=== PATIENT | female | born 1945 | race Caucasian/White ===

== ENCOUNTER 2023-11-08 11:43 | Observation (INO) | payer MEDICARE ==
[~2023-11-08] VITALS: Ht 167.6 cm; Wt 58.9 kg
[2023-11-08] VITALS (39 sets, daily range): BP systolic 100–222; BP diastolic 66–132
[~2023-11-08 11:43] MED LIST: FLUOXETINE20 MG PO; LORTAB 1010 MG PO; TRAZODONE50 MG PO
--- NOTE | 2023-11-08 12:00 | NUR ---
PT IN ROOM C/O SOB, " I FEEL LIKE I AM GOING TO ." PT REPORTED FEELING SHAKY, AND FELL TWICE AT HOME.
[2023-11-08] MEDS ORDERED: SODIUM CHLORIDE 0.9% 1,000 ML IV ONE (12:35)
[2023-11-08 12:41] LABS: BASO% 0.6 % (0-3); HEMOGLOBIN 12.7 g/dl (12.0-16.0); IMMATURE GRANULOCYTES 0.3 % (0.0-5.0); LYMPH% 15.6 % (15-41); MEAN CELL VOLUME 87.8 fL CALC (80.0-100.0); MEAN CORPUSCULAR HGB 29.3 pG CALC (26.0-32.0); MEAN CORPUSCULAR HGB CONC 33.4 g/dL CAL (32.0-36.0); MONO% 6.8 % (2-13); NEUT# 4.76 thou/uL (2.00-7.15); NEUT% 76.7 % (42-76); RED BLOOD COUNT 4.33 mill/uL (4.20-5.60); RED CELL DISTRI WIDTH 14.1 % (11.5-15.5)
[2023-11-08] MEDS ORDERED: LABETALOL HCL 20 MG/ 4 ML CARTRG IV ONE (12:50)
[2023-11-08] MEDS ORDERED: DiphenhydrAMINE HCL 50 MG/ML SDV IV ONE (12:50)
--- NOTE | 2023-11-08 13:00 | NUR ---
PT IN ROOM C/O HAVING SOME DIFFICULTY BREATHING, HR ELEVATED. BP ELEVATED. PROVIDER IS AWARE AND IS ADDING MEDS FOR PT.
[2023-11-08 13:06] LABS: ALBUMIN 4.4 g/dL (3.2-5.0); ALKALINE PHOSPHATASE 103 u/l (38-126); ANION GAP 12 (6-22 (CALC)); BILIRUBIN, TOTAL 0.8 mg/dL (0.02-1.3); BUN 14 mg/dL (8-23); BUN/CREATININE RATIO 16 (12-20 (CALC)); CARBON DIOXIDE 24 mmol/l (22-30); CHLORIDE 101 mmol/l (95-108); CREATININE 0.9 mg/dL (0.5-1.0); ETHYL ALCOHOL 0 mg/dl (0-30); GFR FOR AFR.AMER. > 60 ML/MIN (>=60 (CALC)); GFR OTHER RACES > 60 ML/MIN (>=60 (CALC)); LIPASE 81 u/l (23-300); POTASSIUM 4.1 mmol/l (3.5-5.1); SGOT/AST 47 u/l (9-36); SODIUM 133 mmol/l (137-146); TOTAL PROTEIN 7.9 g/dL (6.3-8.2)
[2023-11-08] MEDS ORDERED: diazePAM 10 MG/2 ML VIAL IV ONE (13:10)
--- NOTE | 2023-11-08 14:00 | NUR ---
PT IN ROOM FEELING BETTER, PT IS RESTING WITH EYES CLOSED. IN ROOM WITH PT. NO OTHER CONCERNS TO REPORT AT THIS TIME.
[2023-11-08] MEDS ORDERED: SODIUM CHLORIDE 0.9% 1,000 ML IV PRN (14:50)
[2023-11-08] MEDS ORDERED: ACETAMINOPHEN 325 MG/TAB PO PRN (14:50)
[2023-11-08] MEDS ORDERED: MAGNESIUM HYDROXIDE 30 ML UDC PO PRN (14:50)
--- NOTE | 2023-11-08 15:00 | NUR ---
PT IN ROOM RESTING WATCHING TV. FAMILY MEMBERS IN ROOM WITH PT. NO CONCERNS AT THIS TIME. PT REPORTS FEELING BETTER FROM THIS MORNING
[2023-11-08] MEDS ORDERED: LEVOTHYROXIN50 MC1 PO (15:17)
[2023-11-08] MEDS ORDERED: OLANZAPINE5 MG PO (15:18)
[2023-11-08] MEDS ORDERED: OMEPRAZOLE DR40 MG PO (15:19)
[2023-11-08] MEDS ORDERED: PAROXETINE40 M1 PO (15:20)
[2023-11-08] MEDS ORDERED: MEMANTINE HYDROC5 MG PO (15:21)
[2023-11-08] MEDS ORDERED: CVS IBUPROFEN200 M3 PO (15:59)
[2023-11-08] MEDS ORDERED: TRAVOPROST0.0041 (16:02)
[2023-11-08] MEDS ORDERED: BRIMONIDINE TAR (16:02)
--- NOTE | 2023-11-08 18:00 | NUR ---
PATIENT TRANSFERRED TO ED-I ROOM 14. PATIENT SETTLED AND PROVIDED DINNER TRAY. ALERT AND ORIENTED X 3. DENIES ANY ISSUES OR CONCERNS AT THIS TIME.
--- NOTE | 2023-11-08 18:00 | NUR ---
PT MOVED FROM ROOM 11 TO ROOM 14 SHE IS ADMITTED. PT WILL BE HOLDING IN THE ER UNTIL SHIFT CHANGE. LEFT AHS STATED HE WILL BE BACK IN THE MORNING FOR VISIT. PT HAS NO CONCERNS OR COMPLAINTS AT THIS TIME. ELBA EDGE.
--- NOTE | 2023-11-08 20:23 | NUR ---
REPORT GIVEN TO CHAD ON MS. PT IS GOING TO ROOM 262 ON TELE # 14
--- NOTE | 2023-11-08 20:33 | NUR ---
PT TO FLOOR VIA WHEELCHAIR. NO CONCERNS TO REPORT AT THIS TIME.
--- NOTE | 2023-11-08 20:33 | NUR ---
PATIENT ADMITTED TO [facility] TO ROOM 262. AMBULATED SELF TO ROOM BED. ASSESSMENT COMPLETE. NO DISTRESS. NO COMPLAINTS OF PAIN. DENIES NEEDING ANYTHING AT THIS TIME. ORIENTED PATIENT TO ROOM, CALL NEGRETE AND SURROUNDINGS. BED ALARM ACTIVE FOR SAFETY.
[2023-11-08] MEDS ORDERED: ENOXAPARIN SODIUM 40 MG/0.4 ML SYR SC SCH (21:00)
--- NOTE | 2023-11-09 00:10 | NUR ---
REMAINS RESTING IN BED ON HER RIGHT SIDE. NO DISTRESS NOTED. NO COMPLAINTS OF PAIN. BED REMAINS IN LOW POSITION. CALL NEGRETE IN REACH. BED ALARM ACTIVE FOR SAFETY.
--- NOTE | 2023-11-09 03:34 | NUR ---
PATIENT REMAINS RESTING IN BED. DENIES NEEDING ANYTHING. BED REMAINS IN LOOW POSITION. CALL NEGRETE IN REACH. BED ALARM REMAINS ACTIVE.
[2023-11-09 03:44] VITALS: BP 135/82
[2023-11-09 05:18] LABS: BASO% 0.7 % (0-3); HEMATOCRIT 36.7 % (37.0-47.0); HEMOGLOBIN 12.2 g/dl (12.0-16.0); IMMATURE GRANULOCYTES 0.3 % (0.0-5.0); LYMPH% 25.2 % (15-41); MEAN CELL VOLUME 90.6 fL CALC (80.0-100.0); MEAN CORPUSCULAR HGB 30.1 pG CALC (26.0-32.0); MEAN CORPUSCULAR HGB CONC 33.2 g/dL CAL (32.0-36.0); MONO% 8.5 % (2-13); NEUT# 3.98 thou/uL (2.00-7.15); NEUT% 65.3 % (42-76); RED BLOOD COUNT 4.05 mill/uL (4.20-5.60); RED CELL DISTRI WIDTH 14.1 % (11.5-15.5)
[2023-11-09 05:39] LABS: ANION GAP 10 (6-22 (CALC)); BUN 12 mg/dL (8-23); BUN/CREATININE RATIO 17 (12-20 (CALC)); CARBON DIOXIDE 24 mmol/l (22-30); CHLORIDE 107 mmol/l (95-108); CREATININE 0.7 mg/dL (0.5-1.0); GFR FOR AFR.AMER. > 60 ML/MIN (>=60 (CALC)); GFR OTHER RACES > 60 ML/MIN (>=60 (CALC)); POTASSIUM 3.8 mmol/l (3.5-5.1); SODIUM 138 mmol/l (137-146)
[2023-11-09 06:52] VITALS: BP 158/80
--- NOTE | 2023-11-09 08:00 | NUR ---
pt awake in bed; no apparent distress noted; pt offers no complaints; assessment completed at this time; pt alert and oriented; denies pain; no n/v noted; resp even and unlabored; lungs clear; skin color wnl; hr reg; tele monitor in place; abd soft with bs present; no bm noted per procedure writer; no urine to inspect at this time; #20 to rac patent with ivf infusing without complication; no redness or edema noted at site; pt denies dizziness at present; bed alarm set for pt safety; call light within reach; will continue to monitor
[2023-11-09 09:30] VITALS: BP 154/90
[2023-11-09 09:35] VITALS: BP 153/85
[2023-11-09 09:40] VITALS: BP 134/78
[2023-11-09 10:56] VITALS: BP 107/65
[2023-11-09] MEDS ORDERED: MECLIZINE HCL 25 MG/TAB PO SCH (11:00)
--- NOTE | 2023-11-09 11:08 | NUR ---
pt ambulating the constantino with staff; tolerated well; no dizziness or syncopal episodes noted; tele intact; will continue to monitor
--- NOTE | 2023-11-09 11:25 | NUR ---
pt states "her feel uneven" when walking
--- NOTE | 2023-11-09 12:00 | NUR ---
pt awake in bed; no apparent distress noted; spouse at bedside; denies dizziness; tele monitor intact; call light within reach; will continue to monitor
[2023-11-09] MEDS ORDERED: MECLIZINE25 MG PO (14:04)
--- NOTE | 2023-11-09 15:48 | NUR ---
Discharge instructions given. Patient verbalizes understanding of same. Discharged in stable condition via Wheelchair to Home with spouse. All belongings sent with pt.
[2023-11-10] MEDS ORDERED: KEFLEX500 MG PO (15:32)
[2023-11-10] MEDS ORDERED: ALPRAZOLAM0.5 M2 PO (15:32)
== END 2023-11-09 15:48 | disposition home or self-care (01) ==
LOC: ED 11:43 → ED-I 12:42 → ED 12:42 → MS2 15:18
PROVIDERS: Emergency Medicine; ADMIT Student in an Organized Health Care Education/Training Program; ATTEND Student in an Organized Health Care Education/Training Program
DX: R55 Syncope and collapse (principal); R06.02 Shortness of breath; R42 Dizziness and giddiness; Z91.81 History of falling; Z20.822 Contact with and (suspected) exposure to COVID-19
CPT/HCPCS: J1650; Q9967

== ENCOUNTER 2023-11-10 12:49 | Emergency (ER) | payer MEDICARE ==
[~2023-11-10] VITALS: Ht 167.6 cm; Wt 58.2 kg
[2023-11-10] VITALS (16 sets, daily range): BP systolic 131–199; BP diastolic 77–110
[~2023-11-10 12:49] MED LIST changes: +BRIMONIDINE TAR; +CVS IBUPROFEN200 M3 PO; +LEVOTHYROXIN50 MC1 PO; +MECLIZINE25 MG PO; +MEMANTINE HYDROC5 MG PO; +OLANZAPINE5 MG PO; +OMEPRAZOLE DR40 MG PO; +PAROXETINE40 M1 PO; +TRAVOPROST0.0041
[2023-11-10] MEDS ORDERED: LABETALOL HCL 20 MG/ 4 ML CARTRG IV ONE (13:05)
[2023-11-10] MEDS ORDERED: IPRATROPIUM-Albuterol 0.5MG-2.5MG/3 ML NEB ONE (13:05)
[2023-11-10] MEDS ORDERED: ALPRAZolam 1 MG/TAB PO ONE (13:10)
[2023-11-10 13:25] LABS: URINE BILIRUBIN - DIPSTICK Negative (NEGATIVE); URINE BLOOD DIPSTICK Small (NEGATIVE); URINE GLUCOSE - DIPSTICK Negative (NEGATIVE); URINE KETONE Negative (NEGATIVE); URINE NITRITE - DIPSTICK Negative (Negative); URINE PROTEIN - DIPSTICK 30 mg/dL (NEG-TRACE); URINE UROBILINOGEN - DIPSTICK 0.2 E.U./dL (0.2)
[2023-11-10 13:26] LABS: BASO% 0.4 % (0-3); HEMATOCRIT 36.9 % (37.0-47.0); HEMOGLOBIN 12.4 g/dl (12.0-16.0); IMMATURE GRANULOCYTES 0.1 % (0.0-5.0); LYMPH% 12.5 % (15-41); MEAN CELL VOLUME 88.5 fL CALC (80.0-100.0); MEAN CORPUSCULAR HGB 29.7 pG CALC (26.0-32.0); MEAN CORPUSCULAR HGB CONC 33.6 g/dL CAL (32.0-36.0); MONO% 6.3 % (2-13); NEUT# 7.17 thou/uL (2.00-7.15); NEUT% 80.7 % (42-76); RED BLOOD COUNT 4.17 mill/uL (4.20-5.60); RED CELL DISTRI WIDTH 13.9 % (11.5-15.5)
[2023-11-10 13:26] LABS: URINE COLOR Yellow; URINE LEUK ESTERASE Moderate (NEGATIVE)
[2023-11-10 13:27] LABS: URINE BACTERIA MODERATE hpf; URINE SQUAMOUS EPITHELIAL CELL MODERATE EPI/hpf (0-FEW)
[2023-11-10 13:41] LABS: ALBUMIN 4.4 g/dL (3.2-5.0); ALKALINE PHOSPHATASE 112 u/l (38-126); ANION GAP 11 (6-22 (CALC)); BILIRUBIN, TOTAL 0.6 mg/dL (0.02-1.3); BUN 12 mg/dL (8-23); BUN/CREATININE RATIO 16 (12-20 (CALC)); CARBON DIOXIDE 24 mmol/l (22-30); CHLORIDE 104 mmol/l (95-108); CREATININE 0.8 mg/dL (0.5-1.0); GFR FOR AFR.AMER. > 60 ML/MIN (>=60 (CALC)); GFR OTHER RACES > 60 ML/MIN (>=60 (CALC)); POTASSIUM 3.5 mmol/l (3.5-5.1); SGOT/AST 41 u/l (9-36); SODIUM 135 mmol/l (137-146); TOTAL PROTEIN 7.6 g/dL (6.3-8.2)
[2023-11-10] MEDS ORDERED: MIDAZOLAM HCL 2 MG/2 ML VIAL IV ONE (15:05)
[2023-11-10] MEDS ORDERED: KEFLEX500 MG PO (15:32)
[2023-11-10] MEDS ORDERED: ALPRAZOLAM0.5 M2 PO (15:32)
--- NOTE | 2023-11-13 11:20 | NUR ---
Discharge follow up call completed 11/13/23. states patient is improving the past several days. Patient returned to [facility] ED on Saturday after discharge from hospital on Saturday. Patient ireceived medication for UTI at that time. Patient has a follow up appointment with her PCP on 11/19/23. No other needs or concerns verbalized by at this time. He appreciates follow up.
== END 2023-11-10 16:15 | disposition home or self-care (01) ==
LOC: ED 12:49
PROVIDERS: Nurse Practitioner
DX: N39.0 Urinary tract infection, site not specified (principal); F41.9 Anxiety disorder, unspecified

== ENCOUNTER 2024-09-04 10:15 | Emergency (ER) | payer MEDICARE ==
[2024-09-04] VITALS (22 sets, daily range): BP systolic 82–148; BP diastolic 47–96
[~2024-09-04] VITALS: Ht 167.6 cm; Wt 48.5 kg
[~2024-09-04 10:15] MED LIST changes: +ALPRAZOLAM0.5 M2 PO; +KEFLEX500 MG PO
[2024-09-04] MEDS ORDERED: SODIUM CHLORIDE 0.9% 1,000 ML IV ONE ×2 (10:55→11:40)
[2024-09-04 11:06] LABS: ALBUMIN 3.8 g/dL (3.2-5.0); BILIRUBIN, TOTAL 0.8 mg/dL (0.02-1.3); POTASSIUM 3.4 mmol/l (3.5-5.1); TOTAL PROTEIN 6.4 g/dL (6.3-8.2)
[2024-09-04 11:08] LABS: BASO% 0.2 % (0-3); HEMATOCRIT 39.8 % (37.0-47.0); HEMOGLOBIN 13.4 g/dl (12.0-16.0); IMMATURE GRANULOCYTES 2.6 % (0.0-5.0); LYMPH% 4.7 % (15-41); MEAN CELL VOLUME 88.8 fL CALC (80.0-100.0); MEAN CORPUSCULAR HGB 29.9 pG CALC (26.0-32.0); MEAN CORPUSCULAR HGB CONC 33.7 g/dL CAL (32.0-36.0); MONO% 4.2 % (2-13); NEUT# 11.22 thou/uL (2.00-7.15); NEUT% 88.3 % (42-76); RED BLOOD COUNT 4.48 mill/uL (4.20-5.60); RED CELL DISTRI WIDTH 13.5 % (11.5-15.5)
[2024-09-04 11:10] LABS: CREATININE 0.7 mg/dL (0.5-1.0)
[2024-09-04] MEDS ORDERED: PREDNISONE1 MG PO (11:52)
[2024-09-04 12:05] LABS: URINE BLOOD DIPSTICK Small (NEGATIVE); URINE GLUCOSE - DIPSTICK 100 mg/dL (NEGATIVE); URINE KETONE 15 mg/dL (NEGATIVE); URINE LEUK ESTERASE Trace (NEGATIVE); URINE NITRITE - DIPSTICK Negative (Negative); URINE PROTEIN - DIPSTICK 30 mg/dL (NEG-TRACE)
[2024-09-04 12:21] LABS: URINE COLOR Yellow
[2024-09-04 12:22] LABS: URINE BACTERIA FEW hpf; URINE EPITHELIAL CELLS FEW EPI/hpf (0-FEW); URINE MUCUS FEW hpf (NONE-FEW); URINE RBC 0-2 RBC/hpf (0-5); URINE WBC 0-2 WBC/hpf (0-5)
== END 2024-09-04 15:42 | disposition home or self-care (01) ==
LOC: ED 10:15
PROVIDERS: Family Medicine
DX: R55 Syncope and collapse (principal); R42 Dizziness and giddiness; E87.1 Hypo-osmolality and hyponatremia; R74.02 Elevation of levels of lactic acid dehydrogenase [LDH]; E86.0 Dehydration; E11.9 Type 2 diabetes mellitus without complications; F03.90 Unspecified dementia, unspecified severity, without behavioral disturbance, psychotic disturbance, mood disturbance, and anxiety; H54.7 Unspecified visual loss; F41.9 Anxiety disorder, unspecified